=== PATIENT | female | born 1985 | race Caucasian/White ===

== ENCOUNTER 2019-07-19 11:58 | Inpatient (IN) ==
[~2019-07-19 11:58] MED LIST: *HR* FentaNYL (PF) 100 MCG/2 ML VIAL IVP PRN; Azithromycin 500 MG in 0.9 % Sodium Chloride 250 ML IVPB ONE; Famotidine 20 MG/2 ML VIAL IVP PRN; Lidocaine 1% 20 ML MDV INFILT PRN; Metoclopramide 10 MG/2 ML VIAL IVP PRN; Naloxone 0.4 MG/ML INJ IVP PRN; Ondansetron 4 MG/2 ML VIAL IVP PRN; Ringers Solution, Lactated 1,000 ML IVC SCH; miSOPROStoL 25 MCG TABLET PO PRN
[2019-07-19] MEDS ORDERED: Oxytocin 20 units/ LR 1000 mL 20 UNIT/1,000 ML BAG IVC SCH ×2 (12:00→19:04)
[2019-07-19 12:49] LABS: Basophils % 0.2 %; Eosinophils # 0.1 K/mcL (0.0-0.6); Hematocrit 29.8 % (35.3-44.9); Hemoglobin 9.1 g/dL (11.5-15.4); Immature Granulocytes % 0.8 % (0-4); Lymphocytes # 1.4 K/mcL (0.6-4.6); Lymphocytes % 15.5 %; Mean Corpuscular HGB Conc 30.5 g/dL (31.6-35.5); Mean Corpuscular Hemoglobin 25.2 pg (28.0-33.3); Mean Corpuscular Volume 82.5 fL (83.0-100.0); Mean Platelet Volume 9.9 fL (9.4-12.4); Monocytes # 1.1 K/mcL (0.0-1.3); Monocytes % 12.3 %; Neutrophils # 6.1 K/mcL (1.6-8.9); Platelet Count 313 K/mcL (140-400); Red Blood Count 3.61 M/mcL (3.82-4.97); Red Cell Distribution Width 15.8 % (11.5-14.5); Segmented Neutrophils % 70.2 %; White Blood Count 8.7 K/mcL (4.3-11.1)
[2019-07-19 13:05] LABS: Amphetamine Screen,Urine Negative ng/mL (Cutoff=1000); Barbiturate Screen,Urine Negative ng/mL (Cutoff=200); Benzodiazepines Screen,Urine Negative ng/mL (Cutoff=200); Cannabinoid Screen,Urine Negative ng/mL (Cutoff = 50); Cocaine Screen,Urine Negative ng/mL (Cutoff= 300); Opiate Screen,Urine Negative ng/mL (Cutoff=300); Phencyclidine Screen,Urine Negative ng/mL (Cutoff=25)
[2019-07-19 13:15] LABS: Alanine Aminotransferase 6 Units/L (7-52); Aspartate Amino Transferase 10 Units/L (13-39); BUN/Creatinine Ratio 13 (6-26); Blood Urea Nitrogen 6 mg/dL (6-20); Lactate Dehydrogenase 117 Units/L (140-271); Uric Acid 4.1 mg/dL (2.3-7.6); eGFR For African Americans > 60 (> 60); eGFR For Non-African Americans > 60 (> 60)
[2019-07-19] MEDS ORDERED: EPHEDrine 50 MG/ML VIAL IVP PRN (14:22)
[2019-07-19] MEDS ORDERED: Bupivacaine-MPF 0.25% 10 ML VIAL EP ONE (14:22)
[2019-07-19] MEDS ORDERED: *HR* FentaNYL (PF) 100 MCG/2 ML VIAL EP ONE (14:22)
[2019-07-19] MEDS ORDERED: Bupivacaine-MPF 0.25% 10 ML VIAL ONE (14:26)
[2019-07-19] MEDS ORDERED: *HR* FentaNYL (PF) 100 MCG/2 ML VIAL ONE (14:26)
[2019-07-19] MEDS ORDERED: Epidural Premix (fent/bupiv) 110 ML EP SCH (14:30)
[2019-07-19] MEDS ORDERED: Epidural Premix (fent/bupiv) 110 ML EP ONE (14:30)
[2019-07-19] MEDS ORDERED: *HR* HYDROcodone/Acet 5/325 mg TABLET PO PRN (19:04)
[2019-07-19] MEDS ORDERED: Measles/Mumps/Rubella Vacc 0.5 ML VIAL SQ PRN (19:04)
[2019-07-19] MEDS ORDERED: Acetaminophen 325 MG TABLET PO PRN (19:04)
[2019-07-19] MEDS ORDERED: Lanolin 7 G OINT...G. TP PRN (19:04)
[2019-07-19] MEDS ORDERED: Benzocaine/Menthol 56 GM AEROSOL SPRAY TP PRN (19:04)
[2019-07-20] MEDS: Ibuprofen 600 MG TABLET PO PRN ×2 (06:21→12:38)
[2019-07-20 06:46] LABS: Basophils % 0.3 %; Eosinophils # 0.1 K/mcL (0.0-0.6); Eosinophils % 0.9 %; Hematocrit 31.4 % (35.3-44.9); Hemoglobin 9.7 g/dL (11.5-15.4); Immature Granulocytes % 0.6 % (0-4); Lymphocytes # 1.6 K/mcL (0.6-4.6); Lymphocytes % 14.7 %; Mean Corpuscular HGB Conc 30.9 g/dL (31.6-35.5); Mean Corpuscular Hemoglobin 25.1 pg (28.0-33.3); Mean Corpuscular Volume 81.1 fL (83.0-100.0); Mean Platelet Volume 9.4 fL (9.4-12.4); Monocytes # 1.2 K/mcL (0.0-1.3); Monocytes % 11.4 %; Neutrophils # 7.9 K/mcL (1.6-8.9); Platelet Count 285 K/mcL (140-400); Red Blood Count 3.87 M/mcL (3.82-4.97); Red Cell Distribution Width 15.9 % (11.5-14.5); Segmented Neutrophils % 72.1 %; White Blood Count 10.9 K/mcL (4.3-11.1)
[2019-07-20 07:38] VITALS: BP 102/68
[2019-07-20] MEDS ORDERED: Prenatal Vit/FA 1 EACH TABLET PO SCH (09:00)
== END 2019-07-20 18:22 | disposition home or self-care (01) | DRG 807 ==
LOC: 1NENULAB → 1NENUOBS 18:38
PROVIDERS: ADMIT Obstetrics & Gynecology; ATTEND Obstetrics & Gynecology